=== PATIENT | male | born 1980 | race African-American/Black ===

== ENCOUNTER 2020-05-01 04:33 | Emergency (ER) | payer OTHER ==
[~2020-05-01] VITALS: Ht 190.5 cm; Wt 93.5 kg
[2020-05-01] MEDS ORDERED: NALOXONE 2MG/2ML SYRINGE (J2310 PER 1MG) As Ordered ONE (04:38)
[2020-05-01] MEDS ORDERED: NALOXONE 2MG/2ML SYRINGE (J2310 PER 1MG) IV STA (04:40)
[2020-05-01] MEDS ORDERED: NS 1,000 ML IV ONE ×2 (04:45)
[2020-05-01 05:05] LABS: HEMATOCRIT 42.3 % (42.0-52.0); HEMOGLOBIN 13.9 g/dl (13.5-17.5); MEAN CORPUSCULAR HEMOGLOBIN 30.5 pg (27.0-33.0); MEAN CORPUSCULAR HGB CONC 32.9 g/dl (32.0-36.5); PLATELET COUNT, AUTOMATED 205 10^3/uL (150-450); RED BLOOD COUNT 4.55 10^6/uL (4.30-6.10); WHITE BLOOD COUNT 8.3 10^3/uL (4.0-10.0)
[2020-05-01 05:32] LABS: ACETAMINOPHEN LEVEL < 2.0 UG/ML (10.0-30.0); ALBUMIN 3.7 GM/DL (3.2-5.2); ALT/SGPT 29 U/L (12-78); BILIRUBIN,DIRECT 0.1 MG/DL (0.0-0.2); BILIRUBIN,TOTAL 0.5 MG/DL (0.2-1.0); BLOOD UREA NITROGEN 14 MG/DL (7-18); CALCIUM LEVEL 8.5 MG/DL (8.5-10.1); CARBON DIOXIDE LEVEL 28 MEQ/L (21-32); CHLORIDE LEVEL 104 MEQ/L (98-107); CK-MB VALUE MASS 6.1 NG/ML (<3.6); CPK CREATINE PHOSPHOKINASE 916 U/L (39-308); CREATININE FOR GFR 1.35 MG/DL (0.70-1.30); ETHYL ALCOHOL (ETHANOL) < 0.003 % (0.000-0.010); GLOMERULAR FILTRATION RATE > 60.0 (>60); GLUCOSE, FASTING 98 MG/DL (70-100); MB/CK RELATIVE INDEX 0.67 (< OR =4); POTASSIUM SERUM 3.5 MEQ/L (3.5-5.1); SALICYLATE LEVEL 4.1 MG/DL (5.0-30.0); SODIUM LEVEL 139 MEQ/L (136-145); TOTAL PROTEIN 7.4 GM/DL (6.4-8.2); TROPONIN I < 0.02 NG/ML (< 0.10)
[2020-05-01 05:41] LABS: ATYPICAL LYMPH 1 % (0-5); EOSINOPHILS 1 % (0-3); LYMPHOCYTES 50 % (16-44); MONOCYTES 9 % (0-5); NEUTROPHILS 39 % (28-66); PLATELET ESTIMATE NORMAL (NORMAL)
--- NOTE | 2020-05-01 05:43 | REPVR ---
PROCEDURE INFORMATION: Exam: CT Head Without Contrast Exam date and time: 05/01/2020 4:36 AM Age: 39 years old Clinical indication: Altered mental status/memory loss; Confusion or disorientation TECHNIQUE: Imaging protocol: Computed tomography of the head without contrast. Radiation optimization: All CT scans at this facility use at least one of these dose optimization techniques: automated exposure control; mA and/or kV adjustment per patient size (includes targeted exams where dose is matched to clinical indication); or iterative reconstruction. COMPARISON: No relevant prior studies available. FINDINGS: Brain: Normal. No hemorrhage. Unremarkable white matter. No mass effect. Cerebral ventricles: No ventriculomegaly. Bones/joints: Unremarkable. No acute fracture. Paranasal sinuses: Visualized sinuses are unremarkable. No fluid levels. Mastoid air cells: Visualized mastoid air cells are well aerated. Soft tissues: Unremarkable. IMPRESSION: No acute findings. Electronically signed by: Giuseppe Freitas On 05/01/2020 05:44:04 AM
--- NOTE | 2020-05-01 05:49 | REPVR ---
PROCEDURE INFORMATION: Exam: CT Cervical Spine Without Contrast Exam date and time: 05/01/2020 4:36 AM Age: 39 years old Clinical indication: Neck pain; Additional info: Altered mental status TECHNIQUE: Imaging protocol: Computed tomography images of the cervical spine without contrast. Radiation optimization: All CT scans at this facility use at least one of these dose optimization techniques: automated exposure control; mA and/or kV adjustment per patient size (includes targeted exams where dose is matched to clinical indication); or iterative reconstruction. COMPARISON: No relevant prior studies available. FINDINGS: Limitations: Examination is limited by motion artifact. Vertebrae: No acute fracture. Normal alignment. Multilevel anterior marginal osteophytes. C2-C3: No significant disc protrusion. No spinal canal stenosis. No significant neural foraminal narrowing. C3-C4: 3 mm left foraminal disc osteophyte complex. Mild spinal stenosis. No right neural foraminal narrowing. Severe left neural foraminal narrowing. C4-C5: No significant disc protrusion. No severe spinal canal stenosis. No significant neural foraminal narrowing. C5-C6: 4 mm disc osteophyte complex. Moderate spinal stenosis. Severe right neural foraminal narrowing. Moderate left neural foraminal narrowing. C6-C7: Limited evaluation of the spinal canal. C7-T1: Limited evaluation of the spinal canal. Soft tissues: Unremarkable. Dental: Multiple dental cavities. Lungs: Lung apices are normal. IMPRESSION: 1. No acute fracture. 2. Degenerative changes of the spine. 3. Multiple dental cavities. Electronically signed by: Giuseppe Freitas On 05/01/2020 05:49:27 AM
--- NOTE | 2020-05-01 06:08 | REPVR ---
PROCEDURE INFORMATION: Exam: XR Chest, 1 View Exam date and time: 05/01/2020 5:43 AM Age: 39 years old Clinical indication: Other: Altered mental status TECHNIQUE: Imaging protocol: XR of the chest Views: 1 view. COMPARISON: No relevant prior studies available. FINDINGS: Limitations: Series 4, image 1 is blank. Lungs: Unremarkable. No consolidation. Pleural space: Unremarkable. No pleural effusion. No pneumothorax. Heart/Mediastinum: Unremarkable. No cardiomegaly. Bones/joints: Unremarkable. IMPRESSION: No acute infiltrates. Electronically signed by: Giuseppe Freitas On 05/01/2020 06:08:00 AM
--- NOTE | 2020-05-01 06:10 | REPVR ---
PROCEDURE INFORMATION: Exam: XR Left Elbow Exam date and time: 05/01/2020 5:43 AM Age: 39 years old Clinical indication: Other: Laceration TECHNIQUE: Imaging protocol: XR Left elbow. Views: 3 or more views. COMPARISON: No relevant prior studies available. FINDINGS: Limitations: Examination is limited by obliquity of the projection. Bones/joints: No fracture. No dislocation. Joint spaces are preserved. Mild marginal osteophytes in the elbow joint. Soft tissues: Normal. IMPRESSION: 1. No acute fracture. 2. Degenerative changes of the elbow. Electronically signed by: Giuseppe Freitas On 05/01/2020 06:10:26 AM
[2020-05-01] MEDS ORDERED: LIDOCAINE W/EPINEPHRINE 1% 20ML VIAL As Ordered ONE (06:12)
[2020-05-01] MEDS ORDERED: LIDOCAINE W/EPINEPHRINE 1% 20ML VIAL SC ONE (06:15)
[2020-05-01 06:32] LABS: AMPHETAMINES LEVEL URINE POSITIVE (NEGATIVE); BARBITURATES URINE NEGATIVE (NEGATIVE); BENZODIAZEPINES URINE POSITIVE (NEGATIVE); CANNABINOIDS URINE POSITIVE (NEGATIVE); COCAINE METABOLITE URINE POSITIVE (NEGATIVE); METHADONE URINE NEGATIVE (NEGATIVE); OPIATES URINE NEGATIVE (NEGATIVE); PHENCYCLIDINE URINE NEGATIVE (NEGATIVE)
[2020-05-01] MEDS ORDERED: ceFAZolin SOD 1 GM in D5W MINI-BAG PLUS 50 ML IV ONE (09:45)
[2020-05-01] MEDS ORDERED: MORPHINE 2 MG/ML 1ML VIAL (J2270) IV ONE (10:15)
[2020-05-01 14:00] VITALS: BP 159/92
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
== END 2020-05-01 14:30 | disposition home or self-care (01) ==
LOC: M ED 04:33 → EDBD 04:33 → M ED 14:30
DX: S41.112A Laceration without foreign body of left upper arm, initial encounter (principal); X99.9XXA Assault by unspecified sharp object, initial encounter; Y92.9 Unspecified place or not applicable; Y93.9 Activity, unspecified; Y99.9 Unspecified external cause status; F19.10 Other psychoactive substance abuse, uncomplicated; R41.82 Altered mental status, unspecified; M19.022 Primary osteoarthritis, left elbow; K02.9 Dental caries, unspecified; M50.30 Other cervical disc degeneration, unspecified cervical region
CPT/HCPCS: 12001; 36600; 70450; 71045; 72125; 73080; 80048; 80076; 80307; 82550; 82553; 82803; 84443; 85025; 93041; 94760; 96361; 96374; 96375; 99285; G0480; J0690; J2270; J2310